=== PATIENT | male | born 1950 | race African-American/Black ===

== ENCOUNTER 2017-06-18 19:33 | Emergency (ER) | payer OTHER ==
[~2017-06-18] VITALS: Ht 172.7 cm; Wt 77.0 kg
[~2017-06-18 19:33] MED LIST: CITA20TA4 PO; DOXE50CA3 PO; GABA100C4 PO; SIMV80TA PO; VIAG100T PO; VITD400 PO
[2017-06-18 19:35] VITALS: BP 180/87; PULSE 88; RESP 16; TEMP 101.4; O2SAT 97
[2017-06-18 19:39] VITALS: BP 141/87; PULSE 114; RESP 16; TEMP 100.5; O2SAT 98
[2017-06-18] MEDS ORDERED: CITA20TA4 PO (22:00)
[2017-06-18] MEDS ORDERED: SIMV80TA PO (22:00)
[2017-06-18] MEDS ORDERED: GABA100C4 PO (22:00)
[2017-06-18] MEDS ORDERED: VIAG100T PO (22:00)
--- NOTE | 2017-06-18 22:10 | PD ---
HPI Chief Complaint: Fever Time Seen by Provider: 21:55 Travel History International Travel<30 days: No Contact w/Intl Traveler<30days: No Traveled to known affect area: No History of Present Illness HPI This patient complains of fever. He says he developed a fever around noon today which gives him a duration of 10 hours. He's not sure the fever comes from. He denies sore throat or runny nose or congestion or cough or shortness of breath or abdominal pain or vomiting or urinary complaints. He has chronic diarrhea about 3 times day for many years. That is nothing new or changed today. He says he is a colonoscopy coming up to evaluate that. No ill contacts. Symptoms severity is moderate. No alleviating factors. PFSH Past Medical History Arthritis: Yes Anxiety: Yes High Cholesterol: Yes Hypertension: Yes Psychiatric: Yes (PTSD) Past Surgical History Abdominal Surgery: Yes (INGUINAL HERNIA) Other Surgery: Yes (left rotator cuff) Social History Alcohol Use: Yes (DAILY 3 DRINKS) Tobacco Use: No (quit 02/14) Substance Use: Yes (marijuana occ. ) Allergies-Medications (Allergen,Severity, Reaction): Coded Allergies: No Known Allergies (Verified , 06/18/17) Reported Meds & Prescriptions Reported Meds & Active Scripts Active Reported Viagra (Sildenafil Citrate) 100 Mg Tab 100 Mg PO DAILY PRN Simvastatin 80 Mg Tab 80 Mg PO DAILY Citalopram (Citalopram Hydrobromide) 20 Mg Tab 20 Mg PO DAILY Gabapentin 100 Mg Cap 100 Mg PO TID Review of Systems General / Constitutional: Positive: Fever Eyes: No: Visual changes HENT: No: Headaches Cardiovascular: No: Chest Pain or Discomfort Respiratory: No: Shortness of Breath Gastrointestinal: No: Abdominal Pain Genitourinary: No: Dysuria Musculoskeletal: No: Pain Skin: No Rash Neurologic: No: Weakness Psychiatric: No: Depression Endocrine: No: Polydipsia Hematologic/Lymphatic: No: Easy Bruising Physical Exam Narrative GENERAL: Well-nourished, well-developed patient in no apparent distress. SKIN: Focused skin assessment reveals no rash and nodules. Skin is Warm and dry. HEAD: Atraumatic. Normocephalic. EYES: Pupils equal and round. No scleral icterus. No injection or drainage. ENT: No nasal bleeding or discharge. Mucous membranes pink and moist. Throat clear NECK: Trachea midline. No JVD. No meningeal signs CARDIOVASCULAR: Regular rate and rhythm. No murmur appreciated. RESPIRATORY: No accessory muscle use. Clear to auscultation. Breath sounds equal bilaterally. GASTROINTESTINAL: Abdomen soft, non-tender, nondistended. Hepatic and splenic margins not palpable. MUSCULOSKELETAL: No obvious deformities. No clubbing. No cyanosis. No edema. NEUROLOGICAL: Awake and alert. No obvious cranial nerve deficits. Motor grossly within normal limits. Normal speech. PSYCHIATRIC: Appropriate mood and affect; insight and judgment normal. Data Data Last Documented VS Vital Signs Date Time Temp Pulse Resp B/P Pulse Ox O2 Delivery O2 Flow Rate FiO2 06/18/17 19:39 100.5 114 16 141/87 98 Room Air Orders Acetaminophen (Tylenol) (06/18/17 22:15) Chest, Single Ap (06/18/17 ) Urinalysis - C+S If Indicated (06/18/17 22:06) Complete Blood Count With Diff (06/18/17 22:06) Basic Metabolic Panel (Bmp) (06/18/17 22:06) Iv Access Insert/Monitor (06/18/17 22:06) Blood Culture (06/18/17 22:06) Labs Laboratory Tests Test 06/18/17 06/18/17 22:18 22:20 Urine Color LIGHT-YELLOW Urine Turbidity CLEAR Urine pH 6.5 Urine Specific [place] 1.010 Urine Protein NEG mg/dL Urine Glucose (UA) NEG mg/dL Urine Ketones NEG mg/dL Urine Occult Blood SMALL Urine Nitrite NEG Urine Bilirubin NEG Urine Urobilinogen LESS THAN 2.0 MG/DL Urine Leukocyte Esterase NEG Urine RBC 2 /hpf Urine WBC 1 /hpf Microscopic Urinalysis Comment CULT NOT INDICATED White Blood Count 10.3 TH/MM3 Red Blood Count 4.98 MIL/MM3 Hemoglobin 15.2 GM/DL Hematocrit 44.1 % Mean Corpuscular Volume 88.6 FL Mean Corpuscular Hemoglobin 30.5 PG Mean Corpuscular Hemoglobin 34.4 % Concent Red Cell Distribution Width 14.6 % Platelet Count 270 TH/MM3 Mean Platelet Volume 8.0 FL Neutrophils (%) (Auto) 69.3 % Lymphocytes (%) (Auto) 21.4 % Monocytes (%) (Auto) 8.2 % Eosinophils (%) (Auto) 0.4 % Basophils (%) (Auto) 0.7 % Neutrophils # (Auto) 7.2 TH/MM3 Lymphocytes # (Auto) 2.2 TH/MM3 Monocytes # (Auto) 0.9 TH/MM3 Eosinophils # (Auto) 0.0 TH/MM3 Basophils # (Auto) 0.1 TH/MM3 CBC Comment DIFF FINAL Differential Comment Sodium Level 137 MEQ/L Potassium Level 4.0 MEQ/L Chloride Level 100 MEQ/L Carbon Dioxide Level 29.3 MEQ/L Anion Gap 8 MEQ/L Blood Urea Nitrogen 8 MG/DL Creatinine 1.28 MG/DL Estimat Glomerular Filtration 68 ML/MIN Rate Random Glucose 95 MG/DL Calcium Level 9.6 MG/DL MDM Medical Decision Making Medical Screen Exam Complete: Yes Emergency Medical Condition: Yes Medical Record Reviewed: Yes Differential Diagnosis Flu syndrome, pneumonia, meningitis, gastroenteritis Narrative Course I have reviewed the patient's electronic medical record. IV placed Blood culture obtained Gram of Tylenol given for fever CBC is normal Metabolic profile is normal Urinalysis is clean I reviewed his chest x-ray is normal on recheck the patient feels well. The etiology of his fever is unclear. Blood culture was sent He is going to call his primary physician on Tuesday for follow-up. I don't think empirically starting antibiotics is a good idea at this point Diagnosis Primary Impression: Acute febrile illness Additional Instructions: The patient was advised to follow up with their physician and return if they worsen. Med/Other Pt SpecificInfo: Other Disposition: 01 DISCHARGE HOME Condition: Stable Sabas Rios MD Jun 18, 2017 22:10
[2017-06-18] MEDS ORDERED: ACETAMINOPHEN 500 MG CPLT PO ONE (22:15)
[2017-06-18 22:43] LABS: AUTOMATED NEUTROPHIL # 7.2 TH/MM3 (1.8-7.7); BASOPHIL # 0.1 TH/MM3 (0-0.2); BASOPHIL % 0.7 % (0.0-2.0); EOSINOPHIL % 0.4 % (0.0-4.0); HEMATOCRIT 44.1 % (39.0-51.0); HEMO FLAGS DIFF FINAL; LYMPH % 21.4 % (9.0-44.0); LYMPHOCYTE # 2.2 TH/MM3 (1.0-4.8); MEAN CELL VOLUME 88.6 FL (80.0-100.0); MEAN CORPUSCULAR HEMOGLOBIN 30.5 PG (27.0-34.0); MEAN CORPUSCULAR HGB CONC 34.4 % (32.0-36.0); MONO % 8.2 % (0.0-8.0); NEUT % 69.3 % (16.0-70.0); PLATELET COUNT 270 TH/MM3 (150-450); RED BLOOD COUNT 4.98 MIL/MM3 (4.50-5.90); RED CELL DISTRIBUTION WIDTH 14.6 % (11.6-17.2); WHITE BLOOD COUNT 10.3 TH/MM3 (4.0-11.0)
[2017-06-18 22:44] LABS: BLOOD, URINE SMALL (NEG); GLUCOSE,URINE NEG (NEG); KETONE, URINE NEG (NEG); NITRITE,URINE NEG (NEG); PH, URINE 6.5 (5.0-8.5); URINE COLOR LIGHT-YELLOW (YELLW/STRAW)
[2017-06-18 22:46] LABS: COMMENT (UR) CULT NOT INDICATED; CULTURE IF INDICATED CULT NOT INDICATED
--- NOTE | 2017-06-18 22:51 | RADRPT ---
EXAM DATE/TIME: 06/18/2017 22:23 [facility] COMPARISON: CHEST SINGLE AP, September 17, 2014, 19:13. INDICATIONS : Fever. MEDICAL HISTORY : None. SURGICAL HISTORY : None. ENCOUNTER: Initial ACUITY: 1 day PAIN SCORE: 0/10 LOCATION: chest FINDINGS: The lungs are clear without infiltrate, nodule, or mass. There is no appreciable pleural effusion fo r technique. Heart and mediastinum are unremarkable. CONCLUSION: No acute cardiopulmonary disease. Gerald Pelayo MD on June 18, 2017 at 22:49 Board Certified Radiologist. This report was verified electronically.
[2017-06-18 23:04] LABS: BICARBONATE 29.3 MEQ/L (21.0-32.0)
== END 2017-06-19 00:30 | disposition home or self-care (01) ==
LOC: NEPD 19:33
DX: R50.9 Fever, unspecified (principal); I10 Essential (primary) hypertension; F43.10 Post-traumatic stress disorder, unspecified; E78.00 Pure hypercholesterolemia, unspecified
CPT/HCPCS: 71010; 80048; 81001; 85025; 87040; 99284